=== PATIENT | female | born 1990 | race Caucasian/White ===

== ENCOUNTER 2020-10-07 22:20 | Emergency (ER) | payer SELFPAY ==
[~2020-10-07] VITALS: Ht 157.5 cm; Wt 91.0 kg
[2020-10-07 22:36] VITALS: BP 132/87
[2020-10-07] MEDS ORDERED: CEPH500C PO (23:24)
[2020-10-07] MEDS ORDERED: DOXY100T PO (23:24)
--- NOTE | 2020-10-07 23:25 | ED.ADGEN ---
Past Medical History Past Medical History: Asthma, Diabetes-Type II, Hypotension, Pancreatitis Past Surgical History: Cholecystectomy, , Tubal ligation Smoking Status: Never Smoker Alcohol Use: Occasionally General Adult EDM: Chief Complaint: INSECT BITE HPI: HPI: Patient is a 30 year old female who presents emergency department with complaints of a red, painful area to her right buttock that has been draining pus today. She states that the symptoms began about 6 days ago. Initially she thought it was an insect or spider bite. She reports that the site has been itchy but now is very painful. She denies any fever, body aches, fatigue, nausea, vomiting, diarrhea, cough, or shortness of breath. She currently rates pain 10 out of 10 on pain scale, she denies any alleviating factors, pain is worse with touching. Patient states she is unsure of her last tetanus shot. Review of Systems: Review of Systems: Complete ROS is negative unless otherwise noted in HPI. Allergies: Allergies: Allergies Coded Allergies Type Severity Reaction Last Updated Verified No Known Drug Allergies 10/07/20 No Physical Exam: PE: See Above Constitutional: Well developed, well nourished, no acute distress, non-toxic appearance. [] HENT: Normocephalic, atraumatic, bilateral external ears normal, nose normal. [] Eyes: PERRLA, EOMI, conjunctiva normal, no discharge. [] Neck: Normal range of motion, no stridor. [] Cardiovascular:Heart rate regular rhythm Lungs & Thorax: Respirations even and unlabored, no retractions, no respiratory distress Skin: Warm, dry; 6 cm diameter indurated, erythemic, warm area to right buttock, open area located centrally that is draining bloody pus, no fluctuance Extremities: No cyanosis, ROM intact, no edema. [] Neurologic: Alert and oriented X 3, no focal deficits noted. [] Psychologic: Affect normal, judgement normal, mood normal. [] Current Patient Data: Vital Signs: Vital Signs Date Time Temp Pulse Resp B/P (MAP) Pulse Ox O2 Delivery O2 Flow Rate FiO2 10/07/20 22:36 97.3 106 16 132/87 (102) 98 Room Air 97.3 EKG: EKG: [] Heart Score: C/O Chest Pain: No Risk Scores: Score 0 - 3: 2.5% MACE over next 6 weeks - Discharge Home Score 4 - 6: 20.3% MACE over next 6 weeks - Admit for Clinical Observation Score 7 - 10: 72.7% MACE over next 6 weeks - Early Invasive Strategies Radiology/Procedures: Radiology/Procedures: [] Course & Med Decision Making: Course & Med Decision Making Pertinent Labs and Imaging studies reviewed. (See chart for details) [] Dragon Disclaimer: Dragon Disclaimer: This electronic medical record was generated, in whole or in part, using a voice recognition dictation system. Departure Departure Impression: Primary Impression: Abscess of right buttock Additional Impressions: Cellulitis of right buttock Need for Tdap vaccination Disposition: HOME / SELF CARE / HOMELESS Condition: STABLE Referrals: UNKNOWN PCP NAME (PCP) Patient Instructions: Abscess, [id number], Cellulitis, [id number] Additional Instructions: Fill the prescription(s) and use as directed. You may also take ibuprofen as needed for pain. Apply warm, moist packs to the area to help decrease discomfort. Recommend that you take a bleach bath daily, add a quarter to half cup of bleach to a full bathtub and soak for 20-30 minutes. Follow up with your primary care doctor or return to the ER in 48 hours to have wound rechecked. Return to the ER sooner if your symptoms worsen or fever develops. Scripts Doxycycline Hyclate (DOXYCYCLINE HYCLATE) 100 Mg Tablet 1 TAB PO BID for 10 Days, #20 TAB 0 Refills Prov: [employer] 10/07/20 Cephalexin (CEPHALEXIN) 500 Mg Capsule 1 CAP PO QID for 10 Days, #40 CAP 0 Refills Prov: [employer] 10/07/20 Problem Qualifiers [employer] October 07, 2020 23:25
[2020-10-07] MEDS: HYDROcodone/APAP 5/325MG 1 TAB TABLET PO ONE (23:31)
[2020-10-07] MEDS: DIPH,PERTUSS(ACELL),TET VAC/PF 0.5 ML SYRINGE. VAX IM ONE (23:31)
== END 2020-10-07 23:40 | disposition home or self-care (01) ==
LOC: ER 22:20
DX: L03.317 Cellulitis of buttock (principal); E11.9 Type 2 diabetes mellitus without complications; J45.909 Unspecified asthma, uncomplicated
CPT/HCPCS: 90471; 90715; 99283